=== PATIENT | female | born 1985 | race Caucasian/White ===

== ENCOUNTER 2016-10-11 03:22 | Emergency (ER) | payer OTHER, MEDICAID ==
--- NOTE | ~2016-10-11 | ER ---
PATIENT'S NAME: [facility] AGE: 31 Y [address] ROOM: [place] [address] LOCATION: [facility] ADMIT DATE: 10/11/2016 ER/Outpatient Report DISCHARGE DATE: 10/11/2016 FAMILY PHYSICIAN: Sunil Garner MD ATTENDING PHYSICIAN: Jacinto eTran TIME OF ARRIVAL: 0330 hours. TIME OF EVALUATION: 0330 hours. CHIEF COMPLAINT: Right leg pain. HISTORY OF PRESENT ILLNESS: The patient is a 31-year-old female who presents to the emergency department today with a chief complaint of right leg pain. She reports this started 3 weeks prior to arrival. Denies any trauma. It is on the right-side of her butt, down her right leg, and it is also in the right groin. She denies any fevers or chills. No history of DVT or PE. The patient did have a baby 2 months ago. Denies any fevers or chills. No urinary frequency, urgency, or painful urination. The pain is currently 7/10 in severity. PAST MEDICAL HISTORY: Two months , hypertension, depression, anxiety, and obesity. PAST SURGICAL HISTORY: x4, tubal ligation, gallbladder, ankle, and knees. SOCIAL HISTORY: The patient smokes, drinks alcohol occasionally, denies any illicit drug use. ALLERGIES: NO KNOWN DRUG ALLERGIES. MEDICATIONS: 1. Norvasc. 2. Synthroid. 3. Zoloft. 4. Adderall. REVIEW OF SYSTEMS: All systems are reviewed by myself are negative with the exception of those discussed in HPI and past medical history. PATIENT'S NAME: [facility] AGE: 31 Y [address] ROOM: [place], [place] [address] LOCATION: ED ADMIT DATE: 10/11/2016 ER/Outpatient Report DISCHARGE DATE: 10/11/2016 FAMILY PHYSICIAN: Sunil Garner MD ATTENDING PHYSICIAN: Jacinto Teran PHYSICAL EXAMINATION: VITAL SIGNS: Weight 165.2 kg, blood pressure 157/93, pulse 85, respiratory rate 16, temperature 96.9, and oxygen saturation 97% on room air. GENERAL: The patient is a 31-year-old female who appears stated age, morbidly obese, in no acute distress. HEENT: Normocephalic, atraumatic. NECK: Supple. There is no nuchal rigidity. CARDIOVASCULAR: Regular rate and rhythm. No murmurs, rubs, or gallops. LUNGS: Clear to auscultation bilaterally. No wheezes, rales, or rhonchi. ABDOMEN: Soft, nontender, and nondistended. No rebound, rigidity, or guarding. MUSCULOSKELETAL: The patient has full range of motion. She ambulates with an antalgic gait. She does have some tenderness to palpation in the right paraspinal lumbar musculature as well as the right gluteal region. SKIN: Warm, dry. There are no rashes or lesions noted. LABS AND X-RAYS: Venous Doppler is negative of the right lower extremity. CBC is unremarkable. CMP is unremarkable. D-dimer is slightly positive at 0.68. A urinalysis shows 25 leukocyte esterase, 50 blood, otherwise unremarkable. Urine hCG is negative. IMPRESSION: 1. Acute right lumbar radiculopathy. 2. Right leg pain. 3. Initial visit. EMERGENCY DEPARTMENT COURSE: The patient brought back to the examination room. Seen and evaluated by myself. Laboratory analysis and imaging are obtained as described above. The patient was given 30 mg of Toradol IM. I have discussed results with the patient. I have recommended close followup with Dr. Sunil Garner in 2 days for reevaluation. I have recommended repeat ultrasound in 7 to 10 days due to the elevated D-dimer and normal ultrasound at this time. I have written a prescription for prednisone for home as well as [place] for home with sedation warning. I do feel this is likely lumbar radiculopathy certainly with elevated D-dimer into the right leg, pain, and some concern for DVT, thus she will need close followup. The ultrasound at this time is negative. DISPOSITION: The patient is discharged to home in good condition. PATIENT'S NAME: [facility] AGE: 31 Y [address] ROOM: [place], [place] [address] LOCATION: ED ADMIT DATE: 10/11/2016 ER/Outpatient Report DISCHARGE DATE: 10/11/2016 FAMILY PHYSICIAN: Sunil Garner MD ATTENDING PHYSICIAN: Jacinto Teran DO CHRISTI ROMERO/cayden /[id number] d: 10/11/16 0604 t: 10/11/16 1737, OUTPATIENT REPORT
--- NOTE | ~2016-10-11 | ENPV ---
Vascular Lower Extremities DVT Study Procedure Demographics Patient Name MESSI [facility] Date of Study 10/11/2016 Patient Number [id number] Gender Female Date of 1985 Age 31 Visit Number [id number] Height Accession Number [id number] Weight Room Number BSA BMI Referring Pascual Banks MD Interpreting José Miguel Beltran MD Physician Physician Physician Ordering Physician Parul Casey MD [employer] Machine Operator Amy Morton T, [facility] Conclusions Summary TECHNIQUE: The veins of the lower extremity on the right were evaluated from the groin to the ankle using eduardo scale, compression, and augmentation. Venous hemodynamics were evaluated with color flow and spectral Doppler. FINDINGS: The deep and superficial veins of the right leg show normal color flow and compressibility without thrombosis. Comparison left common femoral vein is negative. IMPRESSION: 1. NEGATIVE RIGHT LOWER EXTREMITY VENOUS DOPPLER. Procedure Type of Study: Veins:Lower Extremities DVT Study, Lower Extremity Right. Indications for Study:Pain in Limb. Appropriate Use Criteria:6 Patient Status:STAT. Study Location:ER. Technical Quality:Adequate visualization. - Preliminary reported to:Dr. Teran at 0425. Velocities are measured in cm/s ; Diameters are measured in cm Right Lower Extremities DVT Study Measurements Right 2D and Doppler Measurements + + + + +------+------+ + !Location !Visualized!Compressibility!Thrombosis!Signal!Reflux!Reflux ! ! ! ! ! ! ! !(sec) ! + + + + +------+------+ + !GSV Thigh !Yes !Yes !None !Phasic! ! ! + + + + +------+------+ + !Common !Yes !Yes !None !Phasic! ! ! !Femoral ! ! ! ! ! ! ! + + + + +------+------+ + !Prox !Yes !Yes !None !Phasic! ! ! !Femoral ! ! ! ! ! ! ! + + + + +------+------+ + !Mid Femoral!Yes !Yes !None !Phasic! ! ! + + + + +------+------+ + !Dist !Yes !Yes !None !Phasic! ! ! !Femoral ! ! ! ! ! ! ! + + + + +------+------+ + !Popliteal !Yes !Yes !None !Phasic! ! ! + + + + +------+------+ + !PTV !Yes !Yes !None !Phasic! ! ! + + + + +------+------+ + !Peroneal !Yes !Yes !None !Phasic! ! ! + + + + +------+------+ + Left Lower Extremities DVT Study Measurements Left 2D and Doppler Measurements + + + + +------+------+ + !Location !Visualized!Compressibility!Thrombosis!Signal!Reflux!Reflux ! ! ! ! ! ! ! !(sec) ! + + + + +------+------+ + !Common !Yes !Yes !None !Phasic! ! ! !Femoral ! ! ! ! ! ! ! + + + + +------+------+ + Signature dtt: Elder Valdez dtd: 10/11/16 0407 Physician Self Edit
[~2016-10-11 03:22] MED LIST: LEVOTHROID (S200 MCG PO; PRENATAL 1+1)(P1 TAB PO
[2016-10-11 03:55] LABS: BILIRUBIN URINE NEGATIVE (NEGATIVE); BLOOD URINE 50 /UL (NEGATIVE); COLOR URINE YELLOW (YELLOW); GLUCOSE URINE NEGATIVE (NEGATIVE); KETONE URINE NEGATIVE (NEGATIVE); LEUKOCYTES URINE 25 /UL (NEGATIVE); NITRITE URINE NEGATIVE (NEGATIVE); PROTEIN URINE NEGATIVE (NEGATIVE); TURBIDITY URINE CLEAR (CLEAR); UROBILINOGEN URINE NORMAL (NORMAL)
[2016-10-11 03:55] LABS: BASOPHIL % 0.3 %; EOSINOPHIL # 0.3 K/uL (0.0-0.5); HEMOGLOBIN 13.5 g/dL (11.0-15.0); IMMATURE GRANULOCYTE % 0.2 %; LYMPHOCYTE # 3.1 K/uL (0.8-4.0); LYMPHOCYTE % 31.8 %; MCHC 32.2 gm/dL (32.0-36.5); MCV 90.1 fl (83.0-98.0); MONOCYTE # 0.6 K/uL (0.0-1.0); MONOCYTE % 5.7 %; MPV 10.5 fl (9.4-12.4); NEUTROPHIL # (ANC) 5.8 K/uL (1.8-7.8); NRBC % 0 /100WBC (0-0.00); PLATELET COUNT 275 K/uL (150-450); WBC 9.8 K/uL (4.0-11.0)
[2016-10-11 03:58] LABS: HEMATOCRIT 41.9 % (33.0-46.0); RBC 4.65 M/uL (3.50-5.50)
[2016-10-11 04:04] LABS: BACTERIA URINE NEGATIVE (NEGATIVE); EPITHELIAL URINE 0-2 #/HPF (NEGATIVE); RBC URINE 0-2 #/HPF (NEGATIVE); WBC URINE 0-2 #/HPF (NEGATIVE)
[2016-10-11 04:12] LABS: ALBUMIN 3.9 gm/dL (3.5-5.0); ALK PHOS 75 IU/L (33-138); ALT 38 IU/L (12-78); ANION GAP 11.7 (10.0-19.0); AST 21 IU/L (10-40); BLOOD UREA NITROGEN 14 mg/dL (6-24); CALCIUM 9.1 mg/dL (8.5-10.5); CHLORIDE 105 mMol/L (96-110); CO2 28 mMol/L (22-32); CREATININE 0.9 mg/dL (0.5-1.1); ESTIMATED GFR (MDRD EQUATION) > 60; POTASSIUM 3.7 mMol/L (3.7-5.1); SODIUM 141 mMol/L (135-145); TOTAL PROTEIN 7.7 g/dL (6.0-8.4)
[2016-10-11 04:14] LABS: TOTAL BILIRUBIN 0.5 mg/dL (0.0-1.5)
== END 2016-10-11 04:43 | disposition disaster alternative care site (69) ==
LOC: GMED 03:22
PROVIDERS: Emergency Medicine
DX: M54.16 Radiculopathy, lumbar region (principal); M79.604 Pain in right leg; I10 Essential (primary) hypertension; F32.9 Major depressive disorder, single episode, unspecified; E66.9 Obesity, unspecified; F17.200 Nicotine dependence, unspecified, uncomplicated; Z98.51 Tubal ligation status
CPT/HCPCS: J1885